=== PATIENT | female | born 1950 | race Caucasian/White ===

== ENCOUNTER 2019-03-04 12:05 | Inpatient (IN) | payer OTHER ==
[2019-03-04] MEDS ORDERED: PROPOFOL 1,000,000 MCG/100 ML VIAL ONE (12:11)
--- NOTE | 2019-03-04 12:23 | PDOC ---
Attending Attestation - Resident Resident Name: Nicholas Stoddard - HPI HPI: 03/04/19 13:09 Pt presents to the ED after found by brother unresponsive. Patient was apparently in her usual state of health yesterday, with no complaints. On arrival of EMS, they found her unresponsive, with copious amounts of feculent vomit. HR 20s on arrival of EMS. Given atropine and intubated by EMS with improvement in her vital signs. given succinylcholine and roccuronium for intubation. On arrival to the ED, HR and BP were stable. ETT placement confirmed by auscultation, end tidal CO2 and xray. R pupil non reactive and larger than left pupil. 03/04/19 13:11 - Physicial Exam PE: 03/04/19 13:13 Agree with resident exam. Patient is intubated and unresponsive. CV: rrr, no murmur. Pulm: cta b/l Abdomen: obese, non distended. - Critical Care Time Total Critical Care Time: 60 Critical Care Statement: The care of this patient involved high complexity decision making to prevent further life threatening deterioration of the patient 's condition and/or to evaluate & treat vital organ system(s) failure or risk of failure. - Medical Decision Making 03/04/19 13:14 Pt presents to the ED unresponsive. Found to have large anneurysm with intracranial bleed and 1.5 cm shift. Will start mannitol. Patient is increasingly bradycardic and hypotensive. Started on levophed peripherally with some improvement in BP. Mannitol given. Case discussed with neurosurgery , who agrees with grim prognosis and futility of transfer or further interventions. Prognosis discussed with brother at length. They understand that the patient is dying. Will leave full code for now, readdress code status with family if status changes. Will give levophed peripherally for now, as prognosis is extremely poor and patient is becoming hypotensive despite levophed. Will admit to ICU.
[2019-03-04 12:38] LABS: BASO % 0.3 % (0-2.0); HEMATOCRIT 38.8 % (32.4-45.2); HEMOGLOBIN 12.1 GM/dL (10.7-15.3); LYMPH % 5.9 % (8-40); MCH 20.2 pg (25.7-33.7); MCHC 31.2 g/dl (32.0-36.0); MEAN CELL VOLUME 64.8 fl (80-96); MEAN PLT VOLUME 9.1 fl (7.5-11.1); MONO % 5.3 % (3.8-10.2); NEUT % 88.5 % (42.8-82.8); PLATELET COUNT 280 K/MM3 (134-434); RBC 5.99 M/mm3 (3.60-5.2); RDW 16.6 % (11.6-15.6); WHITE BLOOD COUNT 17.7 K/mm3 (4.0-10.0)
[2019-03-04 12:50] LABS: URINE APPEARANCE CLEAR; URINE BILIRUBIN NEGATIVE (NEGATIVE); URINE COLOR YELLOW; URINE GLUCOSE (UA) TRACE (NEGATIVE); URINE KETONE NEGATIVE (NEGATIVE); URINE LEUK ESTERASE NEGATIVE (NEGATIVE); URINE NITRITE NEGATIVE (NEGATIVE); URINE PROTEIN NEGATIVE (NEGATIVE); URINE UROBILINOGEN 0.2 mg/dL (0.2-1.0)
[2019-03-04 12:54] LABS: INR 1.01 (0.83-1.09); PROTHROMBIN TIME (PATIENT) 11.9 SEC (9.7-13.0)
[2019-03-04 13:15] LABS: ALBUMIN 3.4 g/dl (3.4-5.0); BILIRUBIN,TOTAL 0.4 mg/dL (0.2-1); BLOOD UREA NITROGEN 15.2 mg/dL (7-18); CALCIUM 8.9 mg/dL (8.5-10.1); CREATININE 0.8 mg/dL (0.55-1.3); N-TERMINAL BNP 711.5 pg/ml (5-125); POTASSIUM 3.4 mmol/L (3.5-5.1)
[2019-03-04] MEDS ORDERED: MANNITOL 25% 12.5 GM/50 ML VIAL IVPB ONE (13:15)
--- NOTE | 2019-03-04 13:31 | PDOC ---
History of Present Illness - General Chief Complaint: Cardiac Arrest Stated Complaint: Cardiac Arrest Time Seen by Provider: 03/04/19 12:23 History Source: EMS, Sibling - History of Present Illness Initial Comments: 03/05/19 02:04 Ms. Campos is a 68 y/o woman brought in my EMS after being found unresponsive at home this morning. She is unresponsive and cannot provide further history. Per EMS, she was found this morning by her brother when he came into the room to check on her. Upon EMS arrival she was unresponsive, covered in dark brown vomitus, and apneic. She was intubated in the field while en route to [facility]. She maintained her pulse throughout transport and did not require chest compressions. Her brother reports that she had been her normal self the night before when they spent the day with friends, with no complaints at that time aside from a mild headache. He reports that she did not often see her primary care physician and is unsure of her medical problems aside from occasional headaches. Past History - Past Medical History Allergies/Adverse Reactions: Allergies Allergy/AdvReac Type Severity Reaction Status Date / Time Penicillins Allergy Verified 03/04/19 12:09 COPD: No HTN: Yes - Suicide/Smoking/Psychosocial Hx Smoking History: Smoker current status UNK Have you smoked in the past 12 months: No Information on smoking cessation initiated: No Hx Alcohol Use: No Drug/Substance Use Hx: No Review of Systems - Review of Systems Able to Perform ROS?: No (Intubated, unresponsive) *Physical Exam - Vital Signs Last Vital Signs Temp Pulse Resp BP Pulse Ox 90.1 F L 94 H 12 137/91 97 03/04/19 12:38 03/04/19 12:09 03/04/19 12:09 03/04/19 12:09 03/04/19 12:09 - Physical Exam Comments: 03/04/19 16:05 PE: GENERAL: Unresponsive, intubated HEAD: Fixed, blown pupils, no response to light. No signs of trauma, normocephalic EYES: Fixed dilated pupils ENT: Orogastric tube in place. Dried vomitus on lips, face. Auricles normal inspection, nares patent. Moist mucosa NECK: Normal ROM, supple, no lymphadenopathy, JVD, or masses LUNGS: Ventilated. Lung sounds bilaterally with ventilator. HEART: Levophed drip through peripheral IV. HR stable at this time in 90s ABDOMEN: Soft, normoactive bowel sounds. No gurgling alongside ventilator. EXTREMITIES : Normal inspection. No clubbing or cyanosis NEUROLOGICAL: Unresponsive. Fixed blown pupils. ED Treatment Course - LABORATORY CBC & Chemistry Diagram: 03/04/19 12:27 03/04/19 12:27 - ADDITIONAL ORDERS Additional order review: Laboratory Results 03/04/19 03/04/19 03/04/19 12:39 12:27 12:27 PT with INR 11.90 INR 1.01 PTT (Actin FS) Sodium Potassium Chloride Carbon Dioxide Anion Gap BUN Creatinine Est GFR (CKD-EPI)AfAm Est GFR (CKD-EPI)NonAf POC Glucometer Random Glucose Lactic Acid 7.9 H* Calcium Total Bilirubin AST ALT Alkaline Phosphatase Creatine Kinase Troponin I B-Natriuretic Peptide Total Protein Albumin Urine Color Yellow Urine Appearance Clear Urine pH 5.0 Ur Specific [place] 1.009 L Urine Protein Negative Urine Glucose (UA) Trace Urine Ketones Negative Urine Blood Negative Urine Nitrite Negative Urine Bilirubin Negative Urine Urobilinogen 0.2 Ur Leukocyte Esterase Negative 03/04/19 03/04/19 03/04/19 12:27 12:27 12:27 PT with INR INR PTT (Actin FS) 31.0 Sodium 143 Potassium 3.4 L Chloride 109 H Carbon Dioxide 18 L Anion Gap 16 BUN 15.2 Creatinine 0.8 Est GFR (CKD-EPI)AfAm 86.57 Est GFR (CKD-EPI)NonAf 74.70 POC Glucometer Random Glucose 180 H Lactic Acid Calcium 8.9 Total Bilirubin 0.4 AST 21 ALT 13 Alkaline Phosphatase 83 Creatine Kinase 69 Troponin I 0.41 H B-Natriuretic Peptide 711.5 H Total Protein 8.0 Albumin 3.4 Urine Color Urine Appearance Urine pH Ur Specific [place] Urine Protein Urine Glucose (UA) Urine Ketones Urine Blood Urine Nitrite Urine Bilirubin Urine Urobilinogen Ur Leukocyte Esterase 03/04/19 12:22 PT with INR INR PTT (Actin FS) Sodium Potassium Chloride Carbon Dioxide Anion Gap BUN Creatinine Est GFR (CKD-EPI)AfAm Est GFR (CKD-EPI)NonAf POC Glucometer 175 Random Glucose Lactic Acid Calcium Total Bilirubin AST ALT Alkaline Phosphatase Creatine Kinase Troponin I B-Natriuretic Peptide Total Protein Albumin Urine Color Urine Appearance Urine pH Ur Specific [place] Urine Protein Urine Glucose (UA) Urine Ketones Urine Blood Urine Nitrite Urine Bilirubin Urine Urobilinogen Ur Leukocyte Esterase 03/04/19 03/04/19 12:27 12:22 RBC 5.99 H MCV 64.8 L MCHC 31.2 L RDW 16.6 H MPV 9.1 Neutrophils % 88.5 H Lymphocytes % 5.9 L Monocytes % 5.3 Eosinophils % 0.0 Basophils % 0.3 POC Glucometer 175 Medical Decision Making - Medical Decision Making 68F with unknown PMH BIBEMS intubated, unresponsive with fixed dilated pupils, core temp 90.1, concerning for severe sepsis, herniation, ICH. ET tube placement confirmed, OG tube placed with suction with minimal return of gastric contents. Plan: Sepsis order set CT Head without contrast Consult ICU Dispo: ICU --- CT head significant for large R sided ICH with midline shift, ventricular hemorrhage. Plan for neurosurgery consult (Dr. Anderson). --- Radiology called with urgent read - likely ruptured aneurysm. 03/04/19 13:[address] Adnerson. Very poor prognosis given size, severity of bleed. [facility] unequipped for surgical intervention to relieve ICH, prognosis unchanged even with transport and immediate surgery. He will evaluate in ED. --- Counseled family regarding condition, imaging, lab results, prognosis. During discussion with family, heart rate began to decrease, peripheral levophed drip initiated. Family discussed code status, pending discussion with their jewel stringer. --- DNR signed, family would like to avoid further needle sticks as well. --- Patient accepted by ICU. admission pending reply from Dr. Dillard 03/04/19 16:[address] Dillard, she has discussed with Dr. Renee who has accepted the patient for admission. *DC/Admit/Observation/Transfer Diagnosis at time of Disposition: Ruptured aneurysm of intracranial artery - Discharge Dispostion Condition at time of disposition: Guarded Decision to Admit order: Yes - Referrals - Patient Instructions - Post Discharge Activity
[2019-03-04 14:14] LABS: ANISOCYTOSIS 1+; MACROCYTOSIS 0; OVALOCYTE 1+; PLATELET ESTIMATE NORMAL
[2019-03-04] MEDS ORDERED: NOREPINEPHRINE BITARTRATE 4,000 MCG in DEXTROSE 5%-WATER - 496 ML IV SCH (14:30)
[2019-03-04] MEDS ORDERED: PROPOFOL 1,000,000 MCG/100 ML VIAL IVPB SCH (14:30)
--- NOTE | 2019-03-04 14:59 | CONSULT ---
Consultation: REQUESTING PROVIDER: Dr. Stoddard (ER) CONSULT REQUEST: We have been asked to medically evaluate this patient for ICU. HISTORY OF PRESENT ILLNESS: 68 y/o F with PMH HTN, anxiety, ocular migraines who presents to the ED after she was found unresponsive and pulseless by her brother late this morning. Per family, pt was in her USOH yesterday. When EMS arrived (at noon), she was found unresponsive to noxious stimuli, however with pulse and with copious amounts of feculent vomit in her airway. At the time, pt was bradycardic with HR 20s. Was given atropine and intubated by EMS using 7.5 ETT, succinylcholine, and rocoronium. ETT placement confirmed by auscultation, end tidal CO2 and xray. Did not undergo CPR. On arrival to ER, pt with T of 90.1F, BP 137/81, RR12 on vent. Pt found to have fixed, nonreactive pupils, with R pupil non reactive and larger than left pupil. In ER, hartman placed, IV NS started, levophed gtt started peripherally, mannitol x 1 given, and neurosx consulted as pt was found to have Head CT with findings highly suspicious for aneurysm. With large amount of bilateral subarachnoid hemorrhage and intraventricular hemorrhage. There is mass effect and shift of the anterior midline structures toward L with subfalcine herniation of approx 1.5cm. Pt admitted to ICU for likely calcified cerebral aneurysm and severe subarachnoid, intracranial hemorrhage. Per family, ever since June 2018, pt has c/o continual CASANOVA. Was told that she "may have had a stroke," however did not follow with a neurologist. More recently, was c/o continual nausea and dizziness. Has hx of HTN with ? dx of "tachyarrythmia" per family. Lives with brother, Isaiah who is her HCP. . Pt DNR, family requesting comfort care. Would like vent to continue tonight. No blood draws or imaging tests. No IJ/ access lines. Supportive medications ok. REVIEW OF SYSTEMS: +intracranial bleed +CASANOVA +N/V PHYSICAL EXAMINATION Vital Signs - 24 hr 03/04/19 03/04/19 03/04/19 12:09 12:38 13:00 Temperature 90.1 F L Pulse Rate 94 H Pulse Rate [ 72 Right Radial] Respiratory 12 16 Rate Blood Pressure 137/91 Blood Pressure 131/84 [Right Arm] O2 Sat by Pulse 97 Oximetry (%) GENERAL: unresponsive to noxious stimuli HEAD: Normal with no signs of trauma. EYES: +fixed, nonreactive pupils. (R>L) EARS, NOSE, THROAT: Ears normal, nares patent, oropharynx clear without exudates. Dry MM NECK: Normal range of motion, supple LUNGS: +coarse breath sounds HEART: Regular rate and rhythm, normal S1 and S2 without murmur, rub or gallop. ABDOMEN: Soft, obese, nontender, not distended LOWER EXTREMITIES: 2+ pt pulses, cool. 1+ pitting edema b/l NEUROLOGICAL: unresponsive to physical and verbal stimuli at time of exam. unable to follow commands. Laboratory Tests 03/04/19 03/04/19 03/04/19 12:27 12:27 12:27 WBC 17.7 H Hgb 12.1 Hct 38.8 Plt Count 280 Sodium 143 Potassium 3.4 L Chloride 109 H Carbon Dioxide 18 L BUN 15.2 Creatinine 0.8 Random Glucose 180 H Lactic Acid Troponin I 0.41 H 03/04/19 03/04/19 12:27 12:39 Random Glucose Lactic Acid 7.9 H* Troponin I Urine pH 5.0 Ur Specific [place] 1.009 L Urine Glucose (UA) Trace Urine Ketones Negative Urine Blood Negative Urine Nitrite Negative Urine Bilirubin Negative Head CT: suspicious for aneurysm. With large amount of bilateral subarachnoid hemorrhage and intraventricular hemorrhage. There is mass effect and shift of the anterior midline structures toward L with subfalcine herniation of approx 1.5cm. Pt admitted to ICU for likely calcified cerebral aneurysm and severe subarachnoid, intracranial hemorrhage. CXR: +ETT needs retraction EKG: NSR, qtc 511ms* ASSESSMENT/PLAN: 68 y/o F with PMH HTN, anxiety, ocular migraines, presents to the ED after she was found unresponsive and pulseless by her brother late this morning. Pt admitted to ICU for likely calcified cerebral aneurysm and severe subarachnoid, intracranial hemorrhage. Neuro #Cerebral aneurysm with severe subarachnoid, intraventricular hemorrhage with herniation -not surgical candidate at this time. c/w supportive measures -c/w keppra 500mg IVPB BID -nimodipine 50mg q4h for vasospasm PPX -morphine gtt requested by family for comfort. -sz precautions #Possible neurogenic shock -hypothermic, hypotensive and bradycardic -c/w levophed gtt peripherally -intubated, sedated -will avoid ashlie hugger at time to avoid increased vasodilation and decreased BP support. -c/w IV NS -No IJ lines per family Pulm #Acute respiratory failure 2/2 IVH, SAH -vented, sedated; on propofol gtt -c/t monitor. No ABG per family Cardio #HTN- controlled - will c/t monitor at this time #F/E/N IV NS 100 cc/hr continue to follow lytes NPO #PPX DVT: SCD's #Code status DNR. Discussed at length with brotherIsaiah. # [phone]. Requesting comfort measures such as morphine gtt No blood draws, ABGs, or imaging tests. No IJ lines/central access lines. #Dispo cont'd ICU monitoring Dispo: We will continue to follow the patient. Thank you for this consultative opportunity. Visit type - Emergency Visit Emergency Visit: Yes ED Registration Date: 03/04/19 Care time: The patient presented to the Emergency Department on the above date and was hospitalized for further evaluation of their emergent condition. - New Patient This patient is new to me today: Yes Date on this admission: 03/04/19 - Critical Care Critical Care patient: Yes Total Critical Care Time (in minutes): 55 Critical Care Statement: The care of this patient involved high complexity decision making to prevent further life threatening deterioration of the patient 's condition and/or to evaluate & treat vital organ system(s) failure or risk of failure.
--- NOTE | 2019-03-04 15:00 | PN ---
Progress Note (short form) - Note Progress Note: NEUROSURGERY CONSULT DICTATED Pt examined Chart reviewed CT reviewed Family and friends at bedside in ED Found by brother unresponsive. In apparently usual state of health yesterday till at least 11pm. On arrival this am she was unresponsive, with copious amounts of feculent vomit. HR 20's. Given atropine and intubated by EMS with improvement in her vital signs. PE: AF, BP stable presently General- unremarkable, obese CN- R pupil 7 mm NR, L pupil 6 mm NR; no Doll's, ? gag (inconsistent); Motor- flex/extends to pain L UE; Sensation- difficult to assess; DTR- 2+, B toes upgoing WCB 17.7, lactic acid 7.[address]- Probable R ICA 4x4 cm calcified aneurysm with extensive basal SAH, extensive IVH, R to L shift Kelsey and Flores grade V; Patel grade IV Prognosis extremely poor with such giant calcified aneurysm and extensive SAH/ IVH with poor neurological condition Sepsis? Supportive care only Nimodipine 60 mg q 4hrs fro vasospasm prophylaxis Keppra for sz prophylaxis Given mannital x1 already for increased ICP Observe neurological function evolution over the next 24 hours DNR appropriate Cultures pending
[2019-03-04] MEDS ORDERED: MORPHINE SULFATE/0.9% NACL/PF 100 MG/100 ML BAG IVPB SCH (17:00)
[2019-03-04] MEDS ORDERED: SODIUM CHLORIDE 1,000 ML IV SCH (17:15)
--- NOTE | 2019-03-04 17:25 | HP ---
CHIEF COMPLAINT: Unresponsive PCP: Dr. Elie Hills ([phone]) HISTORY OF PRESENT ILLNESS: 68 y/o F with PMHx of HTN, Anxiety, Occular migraines presents unresponsive. Patient was accompanied by her brother who aided in providing the HPI. Patient was in her USOH yesterday and last seen well at 2300 yesterday. Her brother does mention that patient has been complaining of more frequent and intense headaches since onset in June, however this week was the first time patient also complained of nausea. Patient was unreachable this AM causing her brother to park home to check on her, at which point he found her unconcious, lying in pool of feculant vomit. EMS was alerted immediately and patient was found unresponsive to noxious stimuli however a faint pulse with HR 20 was detectable. Patient was given Atropine followed up with succinylcholine and rocoronium, and an 7.5 ETT was placed. On arrival in the ED, patient was found to be hypothermic, hypotensive and bradycardic. IV Fluid resuscitation was started and eventually the patient was placed on Peripheral Norepinephrine gtt @ 10mcgs. Head CT revealed a large bilateral subarachnoid hemorrhage, intraventricular hemorrhage, Mass effect and Left shift of anterior midline structures toward the 1.5cm herniation. Neurosurgery was consulted by the ED (Please refer to note). PCP noted above was called to obtain further history. ER course was notable for: (1) (2) (3) Recent Travel: Family at bedside denies PAST MEDICAL HISTORY: As above PAST SURGICAL HISTORY: Hysterectomy, Tonsillectomy Social History: Smoking: Former, Quit 30 years ago Alcohol: Family Denies Drugs: Family Denies Occupation: Retired; Dental office work Ambulation: without assistance Residence: with Brother Family History: Mother: HTN, Tachyarrhythmia Father: Aortic Stenosis Allergies Penicillins Allergy (Verified 03/04/19 12:09) HOME MEDICATIONS: REVIEW OF SYSTEMS Unable to perform PHYSICAL EXAMINATION Vital Signs - 24 hr 03/04/19 03/04/19 03/04/19 12:09 12:20 12:38 Temperature 90.1 F L Pulse Rate 94 H Pulse Rate [ Right Radial] Respiratory 12 16 Rate Blood Pressure 137/91 Blood Pressure [Right Arm] O2 Sat by Pulse 97 Oximetry (%) 03/04/19 03/04/19 03/04/19 13:00 13:30 14:00 Temperature 90.1 F L Pulse Rate 57 L Pulse Rate [ 72 83 99 H Right Radial] Respiratory 16 16 16 Rate Blood Pressure 79/64 L Blood Pressure 131/84 129/81 130/75 [Right Arm] O2 Sat by Pulse 100 100 Oximetry (%) 03/04/19 03/04/19 03/04/19 14:33 15:14 15:35 Temperature Pulse Rate Pulse Rate [ 79 Right Radial] Respiratory 16 16 Rate Blood Pressure Blood Pressure 124/67 [Right Arm] O2 Sat by Pulse 100 100 Oximetry (%) 03/04/19 16:30 Temperature Pulse Rate Pulse Rate [ 40 L Right Radial] Respiratory 16 Rate Blood Pressure Blood Pressure 104/60 [Right Arm] O2 Sat by Pulse 100 Oximetry (%) GENERAL: Sedated HEAD: NCAT EYES: Fixed dilated pupils ENT: Dried Vomit over oral mucousa LUNGS: Intubated, Mechanical vent sounds HEART: RRR S1 S2 ABDOMEN: Obese, Soft, nontender, not distended, + bowel sounds EXTREMITIES: No peripheral edema. NEUROLOGICAL: Sedated Laboratory Results - last 24 hr 03/04/19 03/04/19 03/04/19 12:22 12:27 12:27 WBC RBC Hgb Hct MCV MCH MCHC RDW Plt Count MPV Absolute Neuts (auto) Neutrophils % Lymphocytes % Monocytes % Eosinophils % Basophils % Nucleated RBC % Hypochromia Platelet Estimate Polychromasia Poikilocytosis Anisocytosis Microcytosis Macrocytosis Ovalocytes PT with INR INR PTT (Actin FS) 31.0 Sodium Potassium Chloride Carbon Dioxide Anion Gap BUN Creatinine Est GFR (CKD-EPI)AfAm Est GFR (CKD-EPI)NonAf POC Glucometer 175 Random Glucose Lactic Acid Calcium Total Bilirubin AST ALT Alkaline Phosphatase Creatine Kinase 69 Troponin I 0.41 H B-Natriuretic Peptide Total Protein Albumin Urine Color Urine Appearance Urine pH Ur Specific Almyra Urine Protein Urine Glucose (UA) Urine Ketones Urine Blood Urine Nitrite Urine Bilirubin Urine Urobilinogen Ur Leukocyte Esterase 03/04/19 03/04/19 03/04/19 12:27 12:27 12:27 WBC 17.7 H RBC 5.99 H Hgb 12.1 Hct 38.8 MCV 64.8 L MCH 20.2 L MCHC 31.2 L RDW 16.6 H Plt Count 280 MPV 9.1 Absolute Neuts (auto) 15.7 H Neutrophils % 88.5 H Lymphocytes % 5.9 L Monocytes % 5.3 Eosinophils % 0.0 Basophils % 0.3 Nucleated RBC % 0 Hypochromia 1+ Platelet Estimate Normal Polychromasia 0 Poikilocytosis 1+ Anisocytosis 1+ Microcytosis 2+ Macrocytosis 0 Ovalocytes 1+ PT with INR 11.90 INR 1.01 PTT (Actin FS) Sodium 143 Potassium 3.4 L Chloride 109 H Carbon Dioxide 18 L Anion Gap 16 BUN 15.2 Creatinine 0.8 Est GFR (CKD-EPI)AfAm 86.57 Est GFR (CKD-EPI)NonAf 74.70 POC Glucometer Random Glucose 180 H Lactic Acid Calcium 8.9 Total Bilirubin 0.4 AST 21 ALT 13 Alkaline Phosphatase 83 Creatine Kinase Troponin I B-Natriuretic Peptide 711.5 H Total Protein 8.0 Albumin 3.4 Urine Color Urine Appearance Urine pH Ur Specific Almyra Urine Protein Urine Glucose (UA) Urine Ketones Urine Blood Urine Nitrite Urine Bilirubin Urine Urobilinogen Ur Leukocyte Esterase 03/04/19 03/04/19 12:27 12:39 WBC RBC Hgb Hct MCV MCH MCHC RDW Plt Count MPV Absolute Neuts (auto) Neutrophils % Lymphocytes % Monocytes % Eosinophils % Basophils % Nucleated RBC % Hypochromia Platelet Estimate Polychromasia Poikilocytosis Anisocytosis Microcytosis Macrocytosis Ovalocytes PT with INR INR PTT (Actin FS) Sodium Potassium Chloride Carbon Dioxide Anion Gap BUN Creatinine Est GFR (CKD-EPI)AfAm Est GFR (CKD-EPI)NonAf POC Glucometer Random Glucose Lactic Acid 7.9 H* Calcium Total Bilirubin AST ALT Alkaline Phosphatase Creatine Kinase Troponin I B-Natriuretic Peptide Total Protein Albumin Urine Color Yellow Urine Appearance Clear Urine pH 5.0 Ur Specific Almyra 1.009 L Urine Protein Negative Urine Glucose (UA) Trace Urine Ketones Negative Urine Blood Negative Urine Nitrite Negative Urine Bilirubin Negative Urine Urobilinogen 0.2 Ur Leukocyte Esterase Negative Active Medications Chlorhexidine Gluconate (Hibiclens For Decolonization -) 1 applic TP HS AMBER Norepinephrine Bitartrate 4, (000 mcg/ Dextrose) 500 mls @ 37.5 mls/hr IV TITR AMBER; Protocol Last Admin: 03/04/19 13:30 Dose: 5 mcg/min, 37.5 mls/hr Propofol (Diprivan -) 1,000,000 mcg in 100 mls @ 2.885 mls/hr IVPB TITR AMBER; Protocol Morphine Sulfate (Morphine 100mg/100ml-0.9% Nacl) 100 mg in 100 mls @ 1 mls/hr IVPB TITR AMBER; Protocol Potassium Chloride (Potassium Chloride 10 Meq Premix Ivpb -) 10 meq in 100 mls @ 100 mls/hr IVPB Q60M AMBER Stop: 03/04/19 19:14 Sodium Chloride (Normal Saline -) 1,000 mls @ 100 mls/hr IV ASDIR AMBER Levetiracetam (Keppra Injection -) 500 mg IVPB BID AMBER Mupirocin (Bactroban Ointment (For Decolonization) -) 1 applic NS BID AMBER Stop: 03/09/19 21:59 Nimodipine (Nimotop -) 60 mg PO Q4HPO [facility] IMAGING: -CT Head without contrast: Large slightly hyperdense masslike density extending from the right anterior parasellar region up to the mid brain level measuring approximately 3.8 x 3.8 cm this highly suspicious for an aneurysm. Surrounding likely intraparenchymal hemorrhage in the right frontal lobe, anteriorly with a large amount of bilateral subarachnoid hemorrhage as well as extensive intraventricular acute hemorrhage are also present. There is mass effect and shift of the anterior midline structures towards the left with subfalcine herniation of approximately 1.5 cm. Case discussed with Dr. Aaliyah De Jesus, emergency room caring attending physician -CXR: Low-lying endotracheal tube. Please retract. See above. ASSESSMENT/PLAN: 68 y/o F with PMHx of HTN, Anxiety, Occular migraines presents unresponsive, found to be hypothermic, hypotensive and bradycardic. Head CT revealed a large bilateral subarachnoid hemorrhage, intraventricular hemorrhage, Mass effect and Left shift of anterior midline structures toward the 1.5cm herniation. Neurosurgery was consulted and patient admitted to ICU. ICU team further discussed the case with the family and patient was made DNR )Please refer to ICU Admission note). #Unresponsive -Likely due to Aneurysm with surrounding likely intraparenchymal hemorrhage, bilateral subarachnoid hemorrhage, extensive intraventricular acute hemorrhage, mass effect and Left shift of anterior midline structures with subfalcine herniation seen on CT Imaging noted above -Neurosx (Dr. Anderson) consulted, appreciate rec's, Not a surgical candidate, continue supportive measures -Continue Levetiracetam, Nimodipine -Seizure precautions #Neurogenic shock -hypothermic, hypotensive and bradycardic likely due to above -Continue IVF, Norepinephrine GTT -No central line as per family request #Acute respiratory failure -Intubated on Vent -Sedated on propofol #HTN -Hypotensive on arrival, Now normotensive s/p IVF and pressor support -Resume home meds when clinically appropriate #Anxiety -Resume home meds when clinically appropriate #Occular migraines -Resume home meds when clinically appropriate #FEN -IV NS @ 100 -Replete Lytes PRN -NPO #PPx: -DVT: SCDs Dispo: Admit to ICU, Prognosis is poor Code Status: DNR, Brother Isaiah HCP Visit type - Emergency Visit Emergency Visit: Yes ED Registration Date: 03/04/19 Care time: The patient presented to the Emergency Department on the above date and was hospitalized for further evaluation of their emergent condition. - New Patient This patient is new to me today: Yes Date on this admission: 03/06/19 - Critical Care Critical Care patient: No ATTENDING PHYSICIAN STATEMENT I saw and evaluated the patient. I reviewed the resident's note and discussed the case with the resident. I agree with the resident's findings and plan as documented. SUBJECTIVE: OBJECTIVE: ASSESSMENT AND PLAN:
[2019-03-04] MEDS: KCL 10 MEQ IVPB 10 MEQ/100 ML INFUS.BAG IVPB SCH ×2 (18:35→21:16)
[2019-03-04 18:41] VITALS: BMI 37.1
--- NOTE | 2019-03-04 20:14 | PN ---
Teaching Attending Note Name of Resident: Olivia Stone ATTENDING PHYSICIAN STATEMENT I saw and evaluated the patient. I reviewed the resident's note and discussed the case with the resident. I agree with the resident's findings and plan as documented. SUBJECTIVE: Patient is unresponsive, intubated due to ICN hemorrhage OBJECTIVE: Vital Signs Temperature 89.9 F L 03/04/19 18:35 Pulse Rate 75 03/04/19 18:35 Respiratory Rate 16 03/04/19 18:35 Blood Pressure 111/66 03/04/19 18:35 O2 Sat by Pulse Oximetry (%) 100 03/04/19 19:01 GENERAL: Sedated HEAD: NC,AT EYES: Fixed dilated pupils ENT: E-T tube LUNGS: Intubated, Mechanical vent sounds HEART: bradycardic with rate of 40's, S1 S2 ABDOMEN: Obese, Soft, nontender, not distended, + bowel sounds EXTREMITIES: No peripheral edema. cold extremities. NEUROLOGICAL: Sedated CBCD WBC 17.7 K/mm3 (4.0-10.0) H 03/04/19 12:27 RBC 5.99 M/mm3 (3.60-5.2) H 03/04/19 12:27 Hgb 12.1 GM/dL (10.7-15.3) 03/04/19 12:27 Hct 38.8 % (32.4-45.2) 03/04/19 12:27 MCV 64.8 fl (80-96) L 03/04/19 12:27 MCHC 31.2 g/dl (32.0-36.0) L 03/04/19 12:27 RDW 16.6 % (11.6-15.6) H 03/04/19 12:27 Plt Count 280 K/MM3 (134-434) 03/04/19 12:27 MPV 9.1 fl (7.5-11.1) 03/04/19 12:27 CMP Sodium 143 mmol/L (136-145) 03/04/19 12:27 Potassium 3.4 mmol/L (3.5-5.1) L 03/04/19 12:27 Chloride 109 mmol/L (98-107) H 03/04/19 12:27 Carbon Dioxide 18 mmol/L (21-32) L 03/04/19 12:27 Anion Gap 16 MMOL/L (8-16) 03/04/19 12:27 BUN 15.2 mg/dL (7-18) 03/04/19 12:27 Creatinine 0.8 mg/dL (0.55-1.3) 03/04/19 12:27 Random Glucose 180 mg/dL (74-106) H 03/04/19 12:27 Calcium 8.9 mg/dL (8.5-10.1) 03/04/19 12:27 Total Bilirubin 0.4 mg/dL (0.2-1) 03/04/19 12:27 AST 21 U/L (15-37) 03/04/19 12:27 ALT 13 U/L (13-61) 03/04/19 12:27 Alkaline Phosphatase 83 U/L (45-117) 03/04/19 12:27 Total Protein 8.0 g/dl (6.4-8.2) 03/04/19 12:27 Albumin 3.4 g/dl (3.4-5.0) 03/04/19 12:27 CARDIAC ENZYMES Creatine Kinase 69 U/L (26-192) 03/04/19 12:27 Troponin I 0.41 ng/ml (0.00-0.05) H 03/04/19 12:27 Current Medications Generic Name Dose Route Start Last Admin Trade Name Sanya PRN Reason Stop Dose Admin Chlorhexidine Gluconate 1 applic 03/04/19 22:00 Hibiclens For Decolonization - TP HS AMBER Norepinephrine Bitartrate 4, 500 mls @ 37.5 mls/hr 03/04/19 14:30 03/04/19 13 :30 000 mcg/ Dextrose IV 5 mcg/min TITR AMBER 37.5 mls/hr Administration Protocol 5 MCG/MIN Propofol 1,000,000 mcg in 100 mls @ 2.885 mls/hr 03/04/19 14:30 Diprivan - IVPB TITR AMBER Protocol 5 MCG/KG/MIN Morphine Sulfate 100 mg in 100 mls @ 1 mls/hr 03/04/19 17:00 03/04/19 18:33 Morphine 100mg/100ml-0.9% Nacl IVPB Not Given TITR AMBER Protocol 1 MG/HR Sodium Chloride 1,000 mls @ 100 mls/hr 03/04/19 17:15 03/04/19 17:00 Normal Saline - IV 100 mls/hr ASDIR AMBER Administration Levetiracetam 500 mg 03/04/19 22:00 Keppra Injection - IVPB BID [facility] Mupirocin 1 applic 03/04/19 22:00 Bactroban Ointment (For Decolonization) - NS 03/09/19 21:59 BID AMBER Nimodipine 60 mg 03/04/19 15:15 03/04/19 18:28 Nimotop - PO Not Given Q4HPO [facility] Head CT: revealed a large bilateral subarachnoid hemorrhage, intraventricular hemorrhage, Mass effect and Left shift of anterior midline structures toward the 1.5cm herniation. ASSESSMENT AND PLAN: Patient is a 68yo female presneted to ED unresponsive, found to be hypothermic, hypotensive and bradycardic. Neurosurgery was consulted and patient admitted to ICU. ICU team further discussed the case with the family and patient was made DNR ). CT of the head : revealed a large bilateral subarachnoid hemorrhage , intraventricular hemorrhage, Mass effect and Left shift of anterior midline structures toward the 1.5cm herniation. #Acute large b/l subarachnoid hemorrhage #Interventricular hemorrhage with mass effect with left shift with herniation Dr Adam Anderson seen the patient, given Mannitol , intubated for support # Acute respiratory failure s/p intubation DNR DVT px:SCDs
[2019-03-04] MEDS ORDERED: NOREPINEPHRINE BITARTRATE 4 MG/4 ML ML IV ONE (21:06)
[2019-03-04] MEDS: levETIRAcetam 500 MG/5 ML INJECTION VIAL IVPB SCH (21:15)
--- NOTE | 2019-03-04 21:22 | CONS ---
DATE OF CONSULTATION: 03/04/2019 REQUESTING PHYSICIAN: Aaliyah De Jesus MD VENDOR MANAGER: Stiven Anderson MD, Neurosurgery. CHIEF COMPLAINT: Acute subarachnoid hemorrhage. HISTORY OF PRESENT ILLNESS: Patient is a 68-year-old female with unclear past medical history, but no definite intracerebral aneurysm, who was found by her brother this morning to be unresponsive. She was last seen yesterday evening at approximately 11 p.m. in good health. She did not have any complaints at that time. She was found by her brother unresponsive, and EMS was called. She was bradycardic and unresponsive at the time of the EMS evaluation. She was intubated subsequently, and her vital signs stabilized after pharmacological intervention. Presently, she is intubated. Her family is at bedside. Her blood pressure has been much more stable since she has been in the emergency room. Her systolic blood pressure has ranged from 120s to 130s and diastolic pressure had ranged in the 70s to 80s. She is saturating 100%. PAST MEDICAL HISTORY: Noncontributory. MEDICATIONS: Unknown. ALLERGIES: PENICILLIN by report. SOCIAL HISTORY: She does not smoke and only drinks alcohol socially. She lives at home. REVIEW OF SYSTEMS: Otherwise negative for major constitutional, head and neck, cardiovascular, pulmonary, gastrointestinal, genitourinary, endocrinological, neurological, and psychological problems except for the above. PHYSICAL EXAMINATION: Vital Signs: Blood pressure is 130/75 with pulse rate of 99. O2 saturation is 100% on 100% FiO2. HEENT: Examination shows her to be normocephalic, atraumatic. Neck: Supple. Coronary: Examination demonstrated regular rhythm. Lungs: Clear bilaterally. She had decreased breath sounds at the bases. Abdomen: Benign, but obese. Extremities: Examination shows no obvious signs of DVT. Neurologic: She is intubated and comatose. Cranial nerve examination shows right pupil to be 8 mm, left pupil to be 7 mm and nonreactive. She has no doll's eyes. She may have a weak gag. Motor examination shows possible posturing of the left upper extremity, either extensor or flexor to painful central stimuli. Sensory examination is difficult to assess. Deep tendon reflexes are 2+ throughout. She has upgoing toes bilaterally. LABORATORY: Examination shows white blood cell count of 17.7. Her hemoglobin is 12.1. Platelet count is 280,000. INR is 1.01. Serum sodium is 143, and potassium is 3.4. BUN is 15 and creatinine 0.8. Lactic acid is 7.9. Troponin is 0.41. CT scan of the head demonstrated a right parasellar, 4 x 3.8 cm calcified rim lesion consistent with a giant aneurysm. There is intraparenchymal hemorrhage around this lesion in addition to extensive basal subarachnoid hemorrhage. There is extensive intraventricular hemorrhage as well. There is [id number] shift of approximately 1.5 cm. IMPRESSION: 1. 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 2. Rule out sepsis. RECOMMENDATIONS: Patient presents with subarachnoid hemorrhoid, likely secondary to a giant internal carotid artery aneurysm. Because of the large size of the calcified aneurysm, it is difficult to ascertain origin of it at this time. The patient currently has extremely poor neurological function. She is not clinically brain , however. Even though she has no reactive pupils and no doll's eyes, she might have a weak gag and does have some primitive posturing of her upper extremity at this time. Neurosurgical intervention is not recommended at this time because of the patient's extremely grave neurological condition. Such a giant aneurysm is extremely difficult to treat even in a healthy, fully intact patient. The recommendation to the family is to allow the patient to evolve in the natural course, and if she improves to a degree where she could potentially undergo intervention and remain stable, then she could transferred for such treatment. I do not expect that to occur, however, because of the size of this giant aneurysm, the chances of recurrent subarachnoid hemorrhage as well as the current degree of mass effect and midline shift. She is also likely to develop significant vasospasm because of her amount of subarachnoid hemorrhage as well as intraventricular hemorrhage. The above was discussed with the patient's family and friends at the bedside. The pros and cons of treatment approaches were discussed, and all questions were answered. STIVEN ANDERSON M.D. FRANCESCA/[id number]
[2019-03-04] MEDS ORDERED: CHLORHEXIDINE GLUCONATE 4% CLEANSER FOR DECOLONIZATION TP SCH (22:00)
[2019-03-04] MEDS ORDERED: MUPIROCIN 2% TOPICAL OINTMENT FOR DECOLONIZATION NS SCH (22:00)
[2019-03-04] MEDS ORDERED: morphine CARPU-JECT 2 MG/1 ML DISP.SYRIN IVPUSH PRN (22:47)
[2019-03-04] MEDS ORDERED: morphine SULFATE 4 MG/ML VIAL IVPUSH PRN (22:52)
[2019-03-05] MEDS ORDERED: NOREPINEPHRINE BITARTRATE 4 MG/4 ML ML IV ONE (05:22)
--- NOTE | 2019-03-05 08:24 | PN ---
Progress Note (short form) - Note Progress Note: NEUROSURGERY Found by brother unresponsive. In apparently usual state of health yesterday till at least 11pm. On arrival this am she was unresponsive, with copious amounts of feculent vomit. HR 20's. Given atropine and intubated by EMS with improvement in her vital signs. Presently hypothermic, BP 140/100 PE: General- unremarkable, obese CN- R pupil 8 mm NR, L pupil 7 mm NR; no Doll's, no gag , no corneal; Motor- flinching trunk to central pain; Sensation- difficult to assess; DTR- 2+, B toes equivocal U cx- negative; blood culture pending Head CT- Probable R ICA 4x4 cm calcified aneurysm with extensive basal SAH, extensive IVH, R to L shift Kelsey and Flores grade V; Patel grade IV Prognosis extremely poor with such giant calcified aneurysm and extensive SAH/ IVH with poor neurological condition Neurological condition has slightly worsened with loss of brainstem reflexes Unable to reliably assess brainstem residual function given hypothermia Sepsis? Supportive care only CTA ordered but apparently cancelled per team Nimodipine 60 mg q 4hrs fro vasospasm prophylaxis Keppra for sz prophylaxis Family aware of poor prognosis, iggy in light of further deterioration DNR appropriate
--- NOTE | 2019-03-05 09:24 | PN ---
Teaching Attending Note Name of Resident: Leslye Claire ATTENDING PHYSICIAN STATEMENT I saw and evaluated the patient. I reviewed the resident's note and discussed the case with the resident. I agree with the resident's findings and plan as documented. SUBJECTIVE: Patient is in icu , intubated , comfort care requested OBJECTIVE: Vital Signs Temperature 92.9 F L 03/05/19 06:00 Pulse Rate 77 03/05/19 06:00 Respiratory Rate 18 03/05/19 09:00 Blood Pressure 146/87 03/05/19 06:00 O2 Sat by Pulse Oximetry (%) 100 03/05/19 09:00 GENERAL: Sedated HEAD: NC,AT EYES: Fixed dilated pupils ENT: E-T tube LUNGS: Intubated, Mechanical vent sounds HEART: HR of 77 now, on admission was bradycardic with rate of 40's, S1 S2 ABDOMEN: Obese, Soft, nontender, not distended, + bowel sounds EXTREMITIES: No peripheral edema. cold extremities. NEUROLOGICAL: Sedated CBCD WBC 17.7 K/mm3 (4.0-10.0) H 03/04/19 12:27 RBC 5.99 M/mm3 (3.60-5.2) H 03/04/19 12:27 Hgb 12.1 GM/dL (10.7-15.3) 03/04/19 12:27 Hct 38.8 % (32.4-45.2) 03/04/19 12:27 MCV 64.8 fl (80-96) L 03/04/19 12:27 MCHC 31.2 g/dl (32.0-36.0) L 03/04/19 12:27 RDW 16.6 % (11.6-15.6) H 03/04/19 12:27 Plt Count 280 K/MM3 (134-434) 03/04/19 12:27 MPV 9.1 fl (7.5-11.1) 03/04/19 12:27 CMP Sodium 143 mmol/L (136-145) 03/04/19 12:27 Potassium 3.4 mmol/L (3.5-5.1) L 03/04/19 12:27 Chloride 109 mmol/L (98-107) H 03/04/19 12:27 Carbon Dioxide 18 mmol/L (21-32) L 03/04/19 12:27 Anion Gap 16 MMOL/L (8-16) 03/04/19 12:27 BUN 15.2 mg/dL (7-18) 03/04/19 12:27 Creatinine 0.8 mg/dL (0.55-1.3) 03/04/19 12:27 Random Glucose 180 mg/dL (74-106) H 03/04/19 12:27 Calcium 8.9 mg/dL (8.5-10.1) 03/04/19 12:27 Total Bilirubin 0.4 mg/dL (0.2-1) 03/04/19 12:27 AST 21 U/L (15-37) 03/04/19 12:27 ALT 13 U/L (13-61) 03/04/19 12:27 Alkaline Phosphatase 83 U/L (45-117) 03/04/19 12:27 Total Protein 8.0 g/dl (6.4-8.2) 03/04/19 12:27 Albumin 3.4 g/dl (3.4-5.0) 03/04/19 12:27 CARDIAC ENZYMES Creatine Kinase 69 U/L (26-192) 03/04/19 12:27 Troponin I 0.41 ng/ml (0.00-0.05) H 03/04/19 12:27 Current Medications Generic Name Dose Route Start Last Admin Trade Name Sanya PRN Reason Stop Dose Admin Chlorhexidine Gluconate 1 applic 03/04/19 22:00 03/04/19 21:17 Hibiclens For Decolonization - TP 1 applic HS AMBER Administration Norepinephrine Bitartrate 4, 500 mls @ 37.5 mls/hr 03/04/19 14:30 03/05/19 05 :33 000 mcg/ Dextrose IV 6 mcg/min TITR AMBER 45 mls/hr Titration Protocol 5 MCG/MIN Propofol 1,000,000 mcg in 100 mls @ 2.885 mls/hr 03/04/19 14:30 Diprivan - IVPB TITR [facility]BER Protocol 5 MCG/KG/MIN Sodium Chloride 1,000 mls @ 100 mls/hr 03/04/19 17:15 03/04/19 17:00 Normal Saline - IV 100 mls/hr ASDIR AMBER Administration Levetiracetam 500 mg 03/04/19 22:00 03/04/19 21:15 Keppra Injection - IVPB 500 mg BID AMBER Administration Morphine Sulfate 2 mg 03/04/19 22:52 Morphine Sulfate IVPUSH Q6H PRN PAIN LEVEL 7 - 10 Mupirocin 1 applic 03/04/19 22:00 03/04/19 21:17 Bactroban Ointment (For Decolonization) - NS 03/09/19 21:59 1 applic BID AMBER Administration Nimodipine 60 mg 03/04/19 15:15 03/05/19 06:45 Nimotop - PO Not Given Q4HPO [facility] Head CT: revealed a large bilateral subarachnoid hemorrhage, intraventricular hemorrhage, Mass effect and Left shift of anterior midline structures toward the 1.5cm herniation. ASSESSMENT AND PLAN: Patient is a 68yo female presneted to ED unresponsive, found to be hypothermic, hypotensive and bradycardic. Neurosurgery was consulted and patient admitted to ICU. ICU team further discussed the case with the family and patient was made DNR ). CT of the head : revealed a large bilateral subarachnoid hemorrhage , intraventricular hemorrhage, Mass effect and Left shift of anterior midline structures toward the 1.5cm herniation. #Acute large b/l subarachnoid hemorrhage ,family requesting comfort care #Interventricular hemorrhage with mass effect with left shift with herniation Dr Adam Anderson seen the patient, given Mannitol , intubated for support # Acute respiratory failure s/p intubation, patient is DNR DVT px:SCDs as per neurosx: Prognosis extremely poor with such giant calcified aneurysm and extensive SAH/IVH with poor neurological condition comfort care palliative care
[2019-03-05] MEDS: levETIRAcetam 500 MG/5 ML INJECTION VIAL IVPB SCH (09:58)
--- NOTE | 2019-03-05 12:43 | PN ---
Teaching Attending Note Name of Resident: Gracie Waite ATTENDING PHYSICIAN STATEMENT I saw and evaluated the patient. I reviewed the resident's note and discussed the case with the resident. I agree with the resident's findings and plan as documented. SUBJECTIVE: Pt seen and examined in the ICU. Remains intubated, unresponsive off sedation. Fixed, dilated pupils. No oculocephalic reflex. Still with spontaneous breaths. Hypotensive on levophed gtt. OBJECTIVE: Vital Signs Period Temp Pulse Resp BP Sys/Torres Pulse Ox Last 24 Hr 89.9 F-92.9 F 38-134 15-18 79-155/59-104 100-100 Intake & Output 03/02/19 03/03/19 03/04/19 03/05/19 23:59 23:59 23:59 23:59 Intake Total 325 Output Total 2600 450 Balance -2275 -450 Weight 104.326 kg Gen: intubated, unresponsive Heart: RRR Lung: decreased breath sounds at the bases Abd: soft, nontender Ext: no edema CBC, BMP 03/04/19 12:27 03/04/19 12:27 Active Medications Chlorhexidine Gluconate (Hibiclens For Decolonization -) 1 applic TP HS AMBER Last Admin: 03/04/19 21:17 Dose: 1 applic Norepinephrine Bitartrate 4, (000 mcg/ Dextrose) 500 mls @ 37.5 mls/hr IV TITR AMBER; Protocol Last Titration: 03/05/19 08:00 Dose: 0 mcg/min, 0 mls/hr Propofol (Diprivan -) 1,000,000 mcg in 100 mls @ 2.885 mls/hr IVPB TITR AMBER; Protocol Sodium Chloride (Normal Saline -) 1,000 mls @ 100 mls/hr IV ASDIR AMBER Last Admin: 03/04/19 17:00 Dose: 100 mls/hr Levetiracetam (Keppra Injection -) 500 mg IVPB BID AMBER Last Admin: 03/05/19 09:58 Dose: 500 mg Morphine Sulfate (Morphine Sulfate) 2 mg IVPUSH Q6H PRN PRN Reason: PAIN LEVEL 7 - 10 Mupirocin (Bactroban Ointment (For Decolonization) -) 1 applic NS BID AMBER Stop: 03/09/19 21:59 Last Admin: 03/04/19 21:17 Dose: 1 applic Nimodipine (Nimotop -) 60 mg PO Q4HPO [facility] Last Admin: 03/05/19 10:01 Dose: Not Given ASSESSMENT AND PLAN: Massive Intracranial/Subarachnoid Hemorrhage with midline shift likely from Cerebral Aneurysm Neurogenic Shock/Hypothermia Lactic Acidosis +Troponins likely Demand Ischemia HTN Anxiety - pressors capped - on empiric antiepileptics - no further blood draws per family - continue supportive care - continue discussions regarding goals of care - continue ICU monitoring critical care time spent in reviewing chart, evaluating patient and formulating plan 35 min
--- NOTE | 2019-03-05 12:44 | PN ---
Physical Exam: SUBJECTIVE: Patient seen and examined at the bedside. Stopped pressors this morning patient tachycardic but maintaining BPs, still intubated. Palliative care consulted. OBJECTIVE: Vital Signs Period Temp Pulse Resp BP Sys/Torres Pulse Ox Last 24 Hr 89.9 F-92.9 F 38-134 15-18 79-155/59-104 100-100 GENERAL: The patient is intubated and sedated HEAD: Normal with no signs of trauma. EYES: asymmetric fixed and dilated pupils R>L ENT: dry oral mucosa LUNGS: Intubated, Mechanical breath sounds HEART: Regular rhythm, S1, S2, tachycardic ABDOMEN: Obese, Soft, nontender, not distended, + bowel sounds EXTREMITIES: no edema. NEUROLOGICAL: unable to assess SKIN: cool, dry Laboratory Results - last 24 hr 03/04/19 03/04/19 03/04/19 12:27 12:27 12:27 WBC 17.7 H RBC 5.99 H Hgb 12.1 Hct 38.8 MCV 64.8 L MCH 20.2 L MCHC 31.2 L RDW 16.6 H Plt Count 280 MPV 9.1 Absolute Neuts (auto) 15.7 H Neutrophils % 88.5 H Lymphocytes % 5.9 L Monocytes % 5.3 Eosinophils % 0.0 Basophils % 0.3 Nucleated RBC % 0 Hypochromia 1+ Platelet Estimate Normal Polychromasia 0 Poikilocytosis 1+ Anisocytosis 1+ Microcytosis 2+ Macrocytosis 0 Ovalocytes 1+ PT with INR INR PTT (Actin FS) 31.0 Sodium Potassium Chloride Carbon Dioxide Anion Gap BUN Creatinine Est GFR (CKD-EPI)AfAm Est GFR (CKD-EPI)NonAf Random Glucose Lactic Acid Calcium Total Bilirubin AST ALT Alkaline Phosphatase Creatine Kinase 69 Troponin I 0.41 H B-Natriuretic Peptide Total Protein Albumin Urine Color Urine Appearance Urine pH Ur Specific [employer] Urine Protein Urine Glucose (UA) Urine Ketones Urine Blood Urine Nitrite Urine Bilirubin Urine Urobilinogen Ur Leukocyte Esterase 03/04/19 03/04/19 03/04/19 12:27 12:27 12:27 WBC RBC Hgb Hct MCV MCH MCHC RDW Plt Count MPV Absolute Neuts (auto) Neutrophils % Lymphocytes % Monocytes % Eosinophils % Basophils % Nucleated RBC % Hypochromia Platelet Estimate Polychromasia Poikilocytosis Anisocytosis Microcytosis Macrocytosis Ovalocytes PT with INR 11.90 INR 1.01 PTT (Actin FS) Sodium 143 Potassium 3.4 L Chloride 109 H Carbon Dioxide 18 L Anion Gap 16 BUN 15.2 Creatinine 0.8 Est GFR (CKD-EPI)AfAm 86.57 Est GFR (CKD-EPI)NonAf 74.70 Random Glucose 180 H Lactic Acid 7.9 H* Calcium 8.9 Total Bilirubin 0.4 AST 21 ALT 13 Alkaline Phosphatase 83 Creatine Kinase Troponin I B-Natriuretic Peptide 711.5 H Total Protein 8.0 Albumin 3.4 Urine Color Urine Appearance Urine pH Ur Specific [employer] Urine Protein Urine Glucose (UA) Urine Ketones Urine Blood Urine Nitrite Urine Bilirubin Urine Urobilinogen Ur Leukocyte Esterase 03/04/19 12:39 WBC RBC Hgb Hct MCV MCH MCHC RDW Plt Count MPV Absolute Neuts (auto) Neutrophils % Lymphocytes % Monocytes % Eosinophils % Basophils % Nucleated RBC % Hypochromia Platelet Estimate Polychromasia Poikilocytosis Anisocytosis Microcytosis Macrocytosis Ovalocytes PT with INR INR PTT (Actin FS) Sodium Potassium Chloride Carbon Dioxide Anion Gap BUN Creatinine Est GFR (CKD-EPI)AfAm Est GFR (CKD-EPI)NonAf Random Glucose Lactic Acid Calcium Total Bilirubin AST ALT Alkaline Phosphatase Creatine Kinase Troponin I B-Natriuretic Peptide Total Protein Albumin Urine Color Yellow Urine Appearance Clear Urine pH 5.0 Ur Specific [employer] 1.009 L Urine Protein Negative Urine Glucose (UA) Trace Urine Ketones Negative Urine Blood Negative Urine Nitrite Negative Urine Bilirubin Negative Urine Urobilinogen 0.2 Ur Leukocyte Esterase Negative Active Medications Generic Name Dose Route Start Last Admin Trade Name Prafulq PRN Reason Stop Dose Admin Chlorhexidine Gluconate 1 applic 03/04/19 22:00 03/04/19 21:17 Hibiclens For Decolonization - TP 1 applic HS AMBER Administration Norepinephrine Bitartrate 4, 500 mls @ 37.5 mls/hr 03/04/19 14:30 03/05/19 08 :00 000 mcg/ Dextrose IV 0 mcg/min TITR AMBER 0 mls/hr Titration Protocol 5 MCG/MIN Propofol 1,000,000 mcg in 100 mls @ 2.885 mls/hr 03/04/19 14:30 Diprivan - IVPB TITR AMBER Protocol 5 MCG/KG/MIN Sodium Chloride 1,000 mls @ 100 mls/hr 03/04/19 17:15 03/04/19 17:00 Normal Saline - IV 100 mls/hr ASDIR AMBER Administration Levetiracetam 500 mg 03/04/19 22:00 03/05/19 09:58 Keppra Injection - IVPB 500 mg BID AMBER Administration Morphine Sulfate 2 mg 03/04/19 22:52 Morphine Sulfate IVPUSH Q6H PRN PAIN LEVEL 7 - 10 Mupirocin 1 applic 03/04/19 22:00 03/04/19 21:17 Bactroban Ointment (For Decolonization) - NS 03/09/19 21:59 1 applic BID AMBER Administration Nimodipine 60 mg 03/04/19 15:15 03/05/19 10:01 Nimotop - PO Not Given Q4HPO AMBER IMAGING: -CT Head without contrast: Large slightly hyperdense masslike density extending from the right anterior parasellar region up to the mid brain level measuring approximately 3.8 x 3.8 cm this highly suspicious for an aneurysm. Surrounding likely intraparenchymal hemorrhage in the right frontal lobe, anteriorly with a large amount of bilateral subarachnoid hemorrhage as well as extensive intraventricular acute hemorrhage are also present. There is mass effect and shift of the anterior midline structures towards the left with subfalcine herniation of approximately 1.5 cm. Case discussed with Dr. Aaliyah De Jesus, emergency room caring attending physician -CXR: Low-lying endotracheal tube. Please retract. See above. ASSESSMENT/PLAN: 68 y/o F with PMHx of HTN, Anxiety, Occular migraines presents unresponsive, found to be hypothermic, hypotensive and bradycardic. Head CT revealed a large bilateral subarachnoid hemorrhage, intraventricular hemorrhage, Mass effect and Left shift of anterior midline structures toward the 1.5cm herniation. Neurosurgery was consulted and patient admitted to ICU. ICU team further discussed the case with the family and patient was made DNR )Please refer to ICU Admission note). # Massive Intracranial/Subarachnoid Hemorrhage with midline shift likely from Cerebral Aneurysm - Neurosx (Dr. Anderson) consulted, appreciate rec's, Not a surgical candidate, continue supportive measures - Continue Levetiracetam, Nimodipine - pressors capped - on empiric antiepileptics - no further blood draws per family - continue supportive care - Palliative care on board #FEN -IV NS @ 100 -Replete Lytes PRN -NPO #PPx: -DVT: SCDs Dispo: Prognosis is poor, continue discussions regarding goals of care. Continue ICU monitoring Code Status: DNR, Vlader Isaiah HCP Visit type - Emergency Visit Emergency Visit: Yes ED Registration Date: 03/04/19 Care time: The patient presented to the Emergency Department on the above date and was hospitalized for further evaluation of their emergent condition. - New Patient This patient is new to me today: No - Critical Care Critical Care patient: No - Discharge Referral Referred to [facility] No ATTENDING PHYSICIAN STATEMENT I saw and evaluated the patient. I reviewed the resident's note and discussed the case with the resident. I agree with the resident's findings and plan as documented. SUBJECTIVE: OBJECTIVE: ASSESSMENT AND PLAN:
--- NOTE | 2019-03-05 13:08 | EKG ---
Test Reason : Blood Pressure : / mmHG Vent. Rate : 092 BPM Atrial Rate : 092 BPM P-R Int : 186 ms QRS Dur : 106 ms QT Int : 414 ms P-R-T Axes : 062 035 046 degrees QTc Int : 511 ms NORMAL SINUS RHYTHM NONSPECIFIC ST ABNORMALITY PROLONGED QT ABNORMAL ECG NO PREVIOUS ECGS AVAILABLE Confirmed by MD Jack, Francisco ([id number]) on 03/05/2019 1:07:54 PM Referred By: Confirmed By:Francisco Santiago MD
[2019-03-05 16:51] VITALS: BP 45/29; PULSE 85; TEMP 92.8
--- NOTE | 2019-03-05 17:02 | PN ---
Progress Note (short form) - Note Progress Note: At patient's family's request, patient was compassionately weaned from ventilator. Went to patient's bedside after monitor showed asystole. On exam the patient did not respond to verbal or physical stimuli. Absent heart and breath sounds. Absent peripheral pulses. Pupils are fixed and dilated. Patient pronounced at 16:55. Dr. Dickinson notified. Family notified at bedside. Autopsy declined. drapery examiner radio interference investigator Josue hartmann case, number [id number].
--- NOTE | 2019-03-05 21:38 | PN ---
Physical Exam: SUBJECTIVE: Patient seen and examined at bedside. pt intubated. pt non responsive OBJECTIVE: Vital Signs Period Temp Pulse Resp BP Sys/Torres Pulse Ox Last 24 Hr 90.9 F-93.2 F 43-137 15-18 42-155/22-110 100-100 GENERAL: The patient is non responsive.pt intubated EYES: pupils non reactive. pupils dilated . negative oculocephalic LUNGS: vent sounds equal b/l HEART: Regular rate and rhythm, S1, S2 without murmur, rub or gallop. ABDOMEN: Soft, nontender, nondistended, normoactive bowel sounds, no guarding EXTREMITIES: 2+ pulses, warm, well-perfused, no edema. SKIN: Warm, dry, normal turgor, no rashes or lesions noted Head CT: suspicious for aneurysm. With large amount of bilateral subarachnoid hemorrhage and intraventricular hemorrhage. There is mass effect and shift of the anterior midline structures toward L with subfalcine herniation of approx 1.5cm. Pt admitted to ICU for likely calcified cerebral aneurysm and severe subarachnoid, intracranial hemorrhage. CXR: +ETT needs retraction EKG: NSR, qtc 511ms* ASSESSMENT/PLAN: 68 yo F with PMH HTN, anxiety, ocular migraines, presents to the ED after she was found unresponsive and pulseless by her brother late this morning. Pt admitted to ICU for likely calcified cerebral aneurysm and severe subarachnoid, intracranial hemorrhage. Neuro: Cerebral aneurysm with severe subarachnoid, intraventricular hemorrhage with herniation, neurogenic shock - c/w supportive measures -c/w keppra 500mg IVPB BID -nimodipine 50mg q4h for vasospasm PPX -morphine gtt requested by family for comfort. -sz precautions -hypothermic, hypotensive and bradycardic -c/w levophed gtt peripherally--> later DC'ed -intubated, sedated -No IJ lines per family Pulm: Acute respiratory failure 2/2 IVH, SAH -vented, sedated; propofol DC -c/t monitor. No ABG per family Cardio: HTN- controlled - will c/t monitor at this time F/E/N continue to follow lytes NPO PPX DVT: SCD's Code status DNR. Discussed at length with brotherIsaiah. # [phone]. Requesting comfort measures such as morphine gtt No blood draws, ABGs, or imaging tests. No IJ lines/central access lines. -compassionate extubation . pressors d/c 'ed -pt at 16:55. Visit type - Emergency Visit Emergency Visit: No - New Patient This patient is new to me today: Yes Date on this admission: 03/05/19 - Critical Care Critical Care patient: Yes Total Critical Care Time (in minutes): 36 Critical Care Statement: The care of this patient involved high complexity decision making to prevent further life threatening deterioration of the patient 's condition and/or to evaluate & treat vital organ system(s) failure or risk of failure. ATTENDING PHYSICIAN STATEMENT I saw and evaluated the patient. I reviewed the resident's note and discussed the case with the resident. I agree with the resident's findings and plan as documented. SUBJECTIVE: OBJECTIVE: ASSESSMENT AND PLAN:
--- NOTE | 2019-03-10 20:22 | DS ---
Physical Exam: SUBJECTIVE: Patient seen and examined, there were no acute events OBJECTIVE: Last Vital Signs Temp Pulse Resp BP Pulse Ox 92.8 F L 85 16 45/29 L 100 03/05/19 15:00 03/05/19 15:00 03/05/19 15:54 03/05/19 15:00 03/05/19 10:00 PHYSICAL EXAM GENERAL: The patient is intubated and sedated HEAD: Normal with no signs of trauma. EYES: asymmetric fixed and dilated pupils R>L ENT: dry oral mucosa LUNGS: Intubated, Mechanical breath sounds HEART: Regular rhythm, S1, S2, tachycardic ABDOMEN: Obese, Soft, nontender, not distended, + bowel sounds EXTREMITIES: no edema. NEUROLOGICAL: unable to assess SKIN: cool, dry LABS CBC,CMP WBC 17.7 K/mm3 (4.0-10.0) H 03/04/19 12:27 RBC 5.99 M/mm3 (3.60-5.2) H 03/04/19 12:27 Hgb 12.1 GM/dL (10.7-15.3) 03/04/19 12:27 Hct 38.8 % (32.4-45.2) 03/04/19 12:27 MCV 64.8 fl (80-96) L 03/04/19 12:27 MCH 20.2 pg (25.7-33.7) L 03/04/19 12:27 MCHC 31.2 g/dl (32.0-36.0) L 03/04/19 12:27 RDW 16.6 % (11.6-15.6) H 03/04/19 12:27 Plt Count 280 K/MM3 (134-434) 03/04/19 12:27 MPV 9.1 fl (7.5-11.1) 03/04/19 12:27 Absolute Neuts (auto) 15.7 K/mm3 (1.5-8.0) H 03/04/19 12:27 Neutrophils % 88.5 % (42.8-82.8) H 03/04/19 12:27 Lymphocytes % 5.9 % (8-40) L 03/04/19 12:27 Monocytes % 5.3 % (3.8-10.2) 03/04/19 12:27 Eosinophils % 0.0 % (0-4.5) 03/04/19 12:27 Basophils % 0.3 % (0-2.0) 03/04/19 12:27 Nucleated RBC % 0 % (0-0) 03/04/19 12:27 Hypochromia 1+ 03/04/19 12:27 Platelet Estimate Normal 03/04/19 12:27 Polychromasia 0 03/04/19 12:27 Poikilocytosis 1+ 03/04/19 12:27 Anisocytosis 1+ 03/04/19 12:27 Microcytosis 2+ 03/04/19 12:27 Macrocytosis 0 03/04/19 12:27 Ovalocytes 1+ 03/04/19 12:27 Sodium 143 mmol/L (136-145) 03/04/19 12:27 Potassium 3.4 mmol/L (3.5-5.1) L 03/04/19 12:27 Chloride 109 mmol/L (98-107) H 03/04/19 12:27 Carbon Dioxide 18 mmol/L (21-32) L 03/04/19 12:27 Anion Gap 16 MMOL/L (8-16) 03/04/19 12:27 BUN 15.2 mg/dL (7-18) 03/04/19 12:27 Creatinine 0.8 mg/dL (0.55-1.3) 03/04/19 12:27 Est GFR (CKD-EPI)AfAm 86.57 03/04/19 12:27 Est GFR (CKD-EPI)NonAf 74.70 03/04/19 12:27 POC Glucometer 175 UNITS (80-120) 03/04/19 12:22 Random Glucose 180 mg/dL (74-106) H 03/04/19 12:27 Lactic Acid 7.9 mmol/L (0.4-2.0) H* 03/04/19 12:27 Calcium 8.9 mg/dL (8.5-10.1) 03/04/19 12:27 Total Bilirubin 0.4 mg/dL (0.2-1) 03/04/19 12:27 AST 21 U/L (15-37) 03/04/19 12:27 ALT 13 U/L (13-61) 03/04/19 12:27 Alkaline Phosphatase 83 U/L (45-117) 03/04/19 12:27 Creatine Kinase 69 U/L (26-192) 03/04/19 12:27 Troponin I 0.41 ng/ml (0.00-0.05) H 03/04/19 12:27 B-Natriuretic Peptide 711.5 pg/ml (5-125) H 03/04/19 12:27 Total Protein 8.0 g/dl (6.4-8.2) 03/04/19 12:27 Albumin 3.4 g/dl (3.4-5.0) 03/04/19 12:27 IMAGING: -CT Head without contrast: Large slightly hyperdense masslike density extending from the right anterior parasellar region up to the mid brain level measuring approximately 3.8 x 3.8 cm this highly suspicious for an aneurysm. Surrounding likely intraparenchymal hemorrhage in the right frontal lobe, anteriorly with a large amount of bilateral subarachnoid hemorrhage as well as extensive intraventricular acute hemorrhage are also present. There is mass effect and shift of the anterior midline structures towards the left with subfalcine herniation of approximately 1.5 cm. Case discussed with Dr. Aaliyah De Jesus, emergency room caring attending physician -CXR: Low-lying endotracheal tube. Please retract. See above. HOSPITAL COURSE: Date of Admission:03/04/19 68 y/o F with PMHx of HTN, Anxiety, Occular migraines presents unresponsive, found to be hypothermic, hypotensive and bradycardic. Head CT revealed a large bilateral subarachnoid hemorrhage, intraventricular hemorrhage, Mass effect and Left shift of anterior midline structures toward the 1.5cm herniation. Neurosurgery was consulted and patient admitted to ICU. ICU team further discussed the case with the family and patient was made DNR. The patient was not a surgical candidate per neurology. Palliative care was consulted and supportive measure were continued. After lengthy discussion with the family a decision was made to compassionately extubate. Pressors were d/c'd and the patient at 16:55. Date of Discharge: 03/10/19 Minutes to complete discharge: 40 Discharge Summary Reason For Visit: RUPTURED CEREBRAL ANURYSM Condition: Guarded - Instructions Disposition: This patient is new to me today: No Emergency Visit: Yes ED Registration Date: 03/04/19 Care time: The patient presented to the Emergency Department on the above date and was hospitalized for further evaluation of their emergent condition. Critical Care patient: No - Discharge Referral Referred to [facility] No ATTENDING PHYSICIAN STATEMENT I saw and evaluated the patient. I reviewed the resident's note and discussed the case with the resident. I agree with the resident's findings and plan as documented. SUBJECTIVE: OBJECTIVE: ASSESSMENT AND PLAN:
== END 2019-03-05 18:52 | disposition expired | DRG 208 ==
LOC: JER 12:05 → JERBED 15:59 → JICU 16:59
PROVIDERS: ADMIT Internal Medicine; ATTEND Internal Medicine
PROC: 5A1945Z Respiratory Ventilation, 24-96 Consecutive Hours (ICD-10-PCS; principal; 2019-03-04)
DX: J96.01 Acute respiratory failure with hypoxia (principal); I61.5 Nontraumatic intracerebral hemorrhage, intraventricular; I60.9 Nontraumatic subarachnoid hemorrhage, unspecified; E87.2 Acidosis; I24.8 Other forms of acute ischemic heart disease; I46.9 Cardiac arrest, cause unspecified; R00.1 Bradycardia, unspecified; R68.0 Hypothermia, not associated with low environmental temperature; I95.89 Other hypotension; I10 Essential (primary) hypertension; F41.9 Anxiety disorder, unspecified; G43.809 Other migraine, not intractable, without status migrainosus; R57.8 Other shock
CPT/HCPCS: 36415; 70450-TC; 71045-TC-FY; 80053; 81003; 82550; 82962; 83605; 83880; 84484; 85025; 85610; 85730; 87040; 87086; 93005; 93010; 94002; 99284-25; J7030